=== PATIENT | female | born 2000 | race Two or more races ===

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

== ENCOUNTER 2024-10-01 21:57 | Emergency (ER) | payer MEDICAID ==
[~2024-10-01] VITALS: Ht 157.5 cm; Wt 57.9 kg
--- NOTE | 2024-10-01 23:44 | ED.PDOC ---
History of Present Illness HPI Comments 23-year-old female with no significant past medical history presents to the ED with a chief complaint of left breast pain with the associated malaise, dizziness, and fever at home. Patient states her breast pain started yesterday afternoon notes of tenderness, redness at this time with no alleviating factors. Patient is noted to be breast-feeding, isn't had an oral temp of 99.5 upon triage assessment. She reports she is still producing milk from the left breast. Has been using warm compresses and massage at home. And denies any headache, abdominal pain, nausea, vomiting, diarrhea, chest pain, or any other associated symptoms, modifying factors at this time. PHYSICAL EXAM: General: Awake, alert and oriented. No acute distress. Skin: Skin in warm, dry and intact without rashes or lesions. HEENT: The head is normocephalic and atraumatic. Conjunctivae are clear without exudates or hemorrhage. Sclera is non-icteric. Chest: Left breast warm with mild overlying erythema, no nipple discharge, no induration, no palpable abscess. No other skin changes. Neck: Normal range of motion. No JVD. Cardiac: Regular rate Respiratory: No signs of respiratory distress. No Stridor. Extremities: Upper and lower extremities are atraumatic in appearance without deformity. Neurological: The patient is awake, alert and oriented to person, place, and time with normal speech. Speech is clear. There is no facial asymmetry. Normal gait Psychiatric: Appropriate mood and affect. Good judgement and insight. REVIEW OF SYSTEMS: General: + fever, no chills, HEENT: No neck pain, no blurred vision Cardiac: No chest pain. No palpitations. Chest: Left breast tenderness, Lungs: No shortness of breath, GI: No abdominal pain, no vomiting Musculoskeletal: No joint pain , no back pain Skin: No rash, no wound Neuro: No headache, pulse dizziness, no syncope Chief Complaint: Breast pain Time Seen by MD: 23:41 Primary Care Provider: PINEDO Reviewed Notes: Nurses Notes, Medications, Allergies Allergies: Coded Allergies: No Known Drug Allergy (Verified Allergy, Unknown, 10/01/24) Home Meds Active Scripts Amoxicillin Trihydrate (Amoxicillin) 500 Mg Cap, 500 MG PO QID for 10 Days, #40 CAP Prov:MARGE OSORIO MD 10/02/24 Information Source: Patient Mode of Arrival: Ambulatory Severity: Mild Timing: Days Duration: Since onset, Days Prehospital treatment: None Past Medical History PAST MEDICAL HISTORY: Denies Surgical History: Denies all surgeries 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 Was a procedure done?: No Differential Dx Considerations may include: Cellulitis, abscess, mastitis, other X-Ray, Labs, Meds, VS Vital Signs Date Time Temp Pulse Resp B/P (MAP) Pulse Ox O2 Delivery O2 Flow Rate FiO2 10/02/24 01:50 100.2 114 17 129/82 (98) 97 100.2 10/01/24 22:19 99.5 116 20 116/82 98 99.5 PATIENT: RONALD KAPLAN ACCT: [id number] UNIT: [id number] : 2000 LOC: ER ROOM / BED: / AGE / SEX: 23 / F ADM STATUS: REG ER SERVICE 01 ORDERING PHYSICIAN: MARGE OSORIO MD PROCEDURE(s): LBRST - L BREAST ULTRASOUND REASON: Rule out abscess ORDER NUMBER(s): [id number], ACCESSION NUMBER(s): [id number] US OF THE LEFT BREAST INDICATION: Pain, redness and swelling in the upper, inner quadrant of the left breast. TECHNIQUE: Focused grayscale ultrasound of the upper, inner quadrant of the LEFT breast performed in area of concern. COMPARISON: None Findings and impression: No sizable fluid collections or mass lesions identified in the imaged left br east. If there is persistent clinical concern, full mammographic evaluation is recommended to further evaluate. Time of 1ST Reevaluation: 00:11 Reevaluation 1ST: Unchanged Patient Education/Counseling: Diagnosis, Treatment, Need For Follow Up Family Education/Counseling: No Family Present SEPSIS Sepsis Screen Date sepsis recognized/suspect: Oct 01, 2024 Time Sepsis recognized/suspect: 2226 Recent Procedure: No On Antibiotic Therapy: No Respiratory Rate >20: No Heart Rate >90: No Temp<36 C (96.8 F) or >38.3 C: No SBP <90 or MAP <65 mmHG: No New Acute Mental Status Change: No Is the patient on CPAP, BIPAP,: No Physician Orders L Breast Ultrasound (10/01/24 23:02) Vital Signs Date Time Temp Pulse Resp B/P (MAP) Pulse Ox O2 Delivery O2 Flow Rate FiO2 10/02/24 01:50 100.2 114 17 129/82 (98) 97 100.2 10/01/24 22:19 99.5 116 20 116/82 98 99.5 Departure 1 Departure Time of Disposition: 00:38 Impression: Primary Impression: Mastitis associated with Disposition: HOME / SELF CARE / HOMELESS Condition: Stable Additional Instructions: ED DISCHARGE INSTRUCTIONS Instructions: Please read all instructions provided in this packet carefully. Although you have been discharged from the Emergency Department, this does not mean that you have a "clean bill of health". No definitive diagnosis for your symptoms has been made today. It is possible that you are in the process of developing a serious illness. This is why you must return to the ED without fail if any new or worsening symptoms (especially if your symptoms include chest pain, trouble breathing, abdominal pain, fever, headache, confusion, trouble seeing, or trouble walking) It is also very important that you see a primary care provider (PCP) within the next 3-5 days to follow up. If you are unable to get an appointment, return to the ED for re-evaluation. Mastitis: Care Instructions Table of Contents Your Care Instructions How can you care for yourself? When should you call for help? Credits Your Care Instructions Mastitis is an inflammation of the breast. It most often occurs while (sometimes called chestfeeding). But it can happen anytime. Mastitis can be caused by poor milk flow from the breast. When milk builds up in a breast, it can cause swelling and inflammation. Sometimes the tissue can become infected with bacteria. Cracked or irritated nipples can make infection more likely. Regular , self-care, and sometimes antibiotics are used to treat mastitis. If mastitis is not treated, a pocket of pus may form in the breast and need to be drained. Follow-up care is a chanel part of your treatment and safety. Be sure to make and go to all appointments, and call your doctor if you are having problems. It's also a good idea to know your test results and keep a list of the medicines you take. How can you care for yourself? If your doctor or concrete finishing machine operator prescribed antibiotics, take them as directed. Do not stop taking them just because you feel better. You need to take the full course of antibiotics. If you are , continue to regularly breastfeed when your baby is hungry. If you use a breast pump, continue to pump when you need to. But avoid pumping extra. It may cause more inflammation. These tips may help. Breastfeed on both sides. Try to start on the sore side. If you need to start on the other side, be sure to switch and breastfeed from the affected side as well. Hand-express a small amount of breast milk before if your breasts are too full with milk. This will make your breasts less full and may make it easier for your baby to latch on to your breast. If it's too painful to breastfeed at all, try pumping or hand expressing your milk. Take an [id number] pain medicine, such as acetaminophen (Tylenol) or ibuprofen (Advil, Motrin) to relieve pain and fever. Read and follow all instructions on the label. Do not take two or more pain medicines at the same time unless the doctor or concrete finishing machine operator told you to. Many pain medicines have acetaminophen, which is Tylenol. Too much acetaminophen (Tylenol) can be harmful. Try using a cold compress on your breast to reduce pain and swelling. Put ice or a cold pack on the area for 10 to 20 minutes at a time. Put a thin cloth between the ice and your skin. Avoid massaging the breast. This can cause tissue injury and worsen swelling. Wear a supportive bra that fits. Rest as much as possible. Drink extra fluids. Take care of sore or cracked nipples. Let your nipples air dry after feeding. Try letting some breast milk dry on your nipples. Avoid using saline soaks or castor oil on your affected breast or sore nipples. Ask your doctor before you use any other products on your breasts. Try applying a nonstick first-aid pad to your breast after each feeding. Sometimes, a blocked nipple pore, called a milk blister (or bleb) happens. A milk blister looks like a white dot on your nipple that can be painful. If a milk blister is causing you pain, it may help to place a warm, wet washcloth over the blister before or pumping. When should you call for help? Call your doctor or concrete finishing machine operator now or seek immediate medical care if: You have worse symptoms of breast inflammation or infection, such as: Increased pain, swelling, warmth, redness, or a color change on your breast. Red streaks leading from a breast. Pus draining from a breast. A fever. Watch closely for changes in your health, and be sure to contact your doctor or concrete finishing machine operator if: You do not get better as expected. You have trouble with your baby's latch or . You feel sad, anxious, or hopeless for more than a few days Credits for Mastitis: Care Instructions Current as of: July 01, 2024 Author: [employer] Staff Clinical Review Board All [employer] education is reviewed by a team that includes physicians, nurses, advanced practitioners, registered dieticians, and other healthcare professionals. e-Prescriptions Amoxicillin Trihydrate (Amoxicillin) 500 Mg Cap 500 MG PO QID for 10 Days, #40 CAP Prov: MARGE OSORIO MD 10/02/24 Comments - I reviewed the following notes from the pt's past medical encounters: N/A The following tests were ordered, and results were reviewed by me: (See diagnostic results section) The following test were independently interpreted by me: N/A Additional information was gathered from interviewing the following independent historians: N/A I reviewed and agreed with the following test results read by other providers: N/A I discussed treatments and results with patient Decision regarding hospitalization or escalation of hospital level of care: Risks and benefits of admission for further treatment of patient's condition was considered however due to patient's stable condition patient will be discharged to follow up closely or return to care for worsening of condition or inability to follow up. Critical Care Note Critical Care Time?: No Stability Stability form required: No Heart Score Heart Score: Heart Score Response (Comments) Value History N/A 0 EKG N/A 0 Age N/A 0 Risk Factors N/A 0 Troponin N/A 0 Total 0 I personally scribed for MARGE OSORIO MD ([email or web address]) on 10/01/24 at 23:44. Electronically submitted by Willian Landaverde ([email or web address]). I personally scribed for MARGE OSORIO MD ([email or web address]) on 10/02/24 at 00:10. Electronically submitted by Willian Landaverde ([email or web address]). MARGE OSORIO MD Oct 01, 2024 23:44
--- NOTE | 2024-10-01 23:59 | DVH ---
US OF THE LEFT BREAST INDICATION: Pain, redness and swelling in the upper, inner quadrant of the left breast. TECHNIQUE: Focused grayscale ultrasound of the upper, inner quadrant of the LEFT breast performed in area of concern. COMPARISON: None Findings and impression: No sizable fluid collections or mass lesions identified in the imaged left breast. If there is persistent clinical concern, full mammographic evaluation is recommended to further evalu ate.
[2024-10-02] MEDS ORDERED: AMOX500C2 PO (00:40)
[2024-10-02 01:50] VITALS: BP 129/82; PULSE 114; RESP 17; TEMP 100.2; O2SAT 97
== END 2024-10-02 02:12 | disposition home or self-care (01) ==
LOC: ER 21:57
DX: N61.0 Mastitis without abscess (principal); Z79.899 Other long term (current) drug therapy
CPT/HCPCS: 76642